=== PATIENT | male | born 1950 | race Caucasian/White ===

== ENCOUNTER 2021-06-02 21:48 | Emergency (ER) | payer MEDICARE ==
[~2021-06-02] VITALS: Ht 188 cm; Wt 96.8 kg
--- NOTE | 2021-06-02 22:03 | PHYS DOC ---
Past History Past Medical History: A-Fib, Arrhythmia, CAD, Hypertension Past Surgical History: Coronary Bypass Surgery Past Surgical History Ablation-A. fib pathway's General Adult EDM: Chief Complaint: CHEST PAIN HPI: HPI: ". I ve been having chest ...discomfort tay off and on the past week or so.. it just today it has been constant. .. tightness feeling.. here in center.. I have prior cardiac issues.. Stents 2006, By pass in 2012.. Patient is a 70 year old male who presents with above hx and complaints of off and on chest discomfort, tightness the past week. The last 24 it has been constant, rated at a discomfort level of 2,. Most severe level was 4. Pt. has been compliant with his meds. Normally follows at [facility] for care with Cardiology Dr. Pimentel and primary Dr. Soares. Patient did have cardiac bypass in 2012 and in 2006 had cardiac stents at [facility]. Patient also underwent ablation for control of his A. fib. No recent travel. 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 Patient has gotten Covid vaccine x3 with [employer] and flu vaccine this year. 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 He is accompanied by his . Patient does not smoke. Denies any history of diabetes. Does have a history of hypertension. Review of Systems: Review of Systems: Constitutional: Denies fever or chills Eyes: Denies change in visual acuity HENT: Denies nasal congestion or sore throat Respiratory: Denies cough or shortness of breath Cardiovascular: Complains of chest tightness GI: Denies abdominal pain, nausea, vomiting, bloody stools or diarrhea : Denies dysuria Musculoskeletal: Denies back pain or joint pain Integument: Denies rash Neurologic: Denies headache, focal weakness or sensory changes Endocrine: Denies polyuria or polydipsia Lymphatic: Denies swollen glands Psychiatric: Denies depression or anxiety Family History: Family History: Noncontributory to presentation Current Medications: Current Meds: See nursing for home meds Allergies: Allergies: Erythromycin Physical Exam: PE: Constitutional: no acute distress, non-toxic appearance. [] HENT: Normocephalic, atraumatic, bilateral external ears normal, oropharynx moist, no oral exudates, nose normal. [] Eyes: PERRLA, EOMI, conjunctiva normal, no discharge. [] Neck: Normal range of motion, no tenderness, supple, no stridor. [] Cardiovascular:Heart rate regular rhythm, no murmur [.] Lungs & Thorax: Bilateral breath sounds equal apex auscultation [. Has] midline CABG scar Abdomen: Bowel sounds normal, soft, no tenderness, no masses, no pulsatile masses. [] Skin: Warm, dry, no erythema, no rash. [] Back: No tenderness, no CVA tenderness. [] Extremities: No tenderness, no cyanosis, no clubbing, ROM intact, no edema. No appreciable cording in legs. Neurologic: Alert and oriented X 3, normal motor function, normal sensory function, no focal deficits noted. [] Psychologic: Affect anxious, judgement normal, mood normal. [] EKG: EKG: My interpretation EKG shows a sinus rhythm at 73 bpm. Some nonspecific T wave changes anterior leads. But no findings acute STEMI with contralateral changes. Time of EKG is 2156 hrs. Second EKG shows sinus rhythm at 66 bpm. No acute morphology or findings of acute STEMI. Does have slightly prolonged QT interval at 512 ms and a QT interval of 486 ms. Overall morphology is similar to prior EKG. Time of this EKG is 00:10 [] Radiology/Procedures: Radiology/Procedures: [][place] [id number] IMAGING REPORT Signed PATIENT: OWEN MARTINES ACCOUNT: [id number] : 1950 LOCATION: ER AGE: 70 SEX: M EXAM STATUS: REG ER ORD. PHYSICIAN: BRITANY YANEZ MD REASON: cp PROCEDURE: PORTABLE CHEST 1V Exam: Chest one view INDICATION: Chest pain TECHNIQUE: Frontal view which Comparisons: None FINDINGS: Sternotomy wires are noted. The cardiomediastinal silhouette and pulmonary vessels are within normal limits. The lung and pleural spaces are clear. IMPRESSION: No acute pulmonary process. Electronically signed by: Jojo Martin MD (06/02/2021 11:08 PM) [facility] DICTATED AND SIGNED BY: JOJO MARTIN MD DATE: 06/02/21 [id number] CC: BETTYE SOARES MD; BRITANY YANEZ MD ~MTH0 0 Heart Score: C/O Chest Pain: Yes HEART Score for Chest Pain: HEART Score for Chest Pain Response (Comments) Value History Slighlty/Non-Suspicious 0 ECG Nonspecific Repolarizatio 1 Age > 65 2 Risk Factors 1 or 2 Risk Factors 1 Troponin < Normal Limit 0 Total 4 Risk Factors: Risk Factors: DM, Current or recent (<one month) smoker, HTN, HLP, family history of CAD, obesity. Risk Scores: Score 0 - 3: 2.5% MACE over next 6 weeks - Discharge Home Score 4 - 6: 20.3% MACE over next 6 weeks - Admit for Clinical Observation Score 7 - 10: 72.7% MACE over next 6 weeks - Early Invasive Strategies Course & Med Decision Making: Course & Med Decision Making Pertinent Labs and Imaging studies reviewed. (See chart for details) Discussed with patient and his options of further investigation tonight. Patient elects to be discharged home. Exhibits UCAR capacity, Patient continue cardiac meds as previous directed. 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 Patient to return if any concerns. Patient follow-up pending Covid results. Pt. without symptoms at time of discharge. Impression: 1. Chest pain 2. History of coronary artery disease status post coronary bypass and stent placements 3. History of A. fib-status post ablation treatment 4.. History of hypertension 5. Mild elevation in LFTs AST 45, ALT of 65, alk phos 157 6. Elevation of glucose= 193 [] Dragon Disclaimer: Dragon Disclaimer: This electronic medical record was generated, in whole or in part, using a voice recognition dictation system. Departure Departure: Referrals: BETTYE SOARES MD (PCP) Anneliese Disclaimer This chart was dictated in whole or in part using Voice Recognition software in a busy, high-work load, and often noisy Emergency Department environment. It may contain unintended and wholly unrecognized errors or omissions. BRITANY YANEZ MD Jun 02, 2021 22:03
[2021-06-02 22:29] LABS: BASO # 0.1 x10^3/uL (0.0-0.2); BASO % 1 % (0-3); EOS # 0.3 x10^3/uL (0.0-0.7); EOS % 4 % (0-3); HEMATOCRIT 43.6 % (39.0-53.0); HEMOGLOBIN 14.9 g/dL (13.0-17.5); LYMPH % 33 % (24-48); MEAN CORPUSCULAR HEMOGLOBIN 31 pg (25-35); MEAN CORPUSCULAR HGB CONC 34 g/dL (31-37); MEAN CORPUSCULAR VOLUME 89 fL (79-100); MONO # 0.7 x10^3/uL (0.0-1.1); MONO % 8 % (0-9); NEUT % 55 % (31-73); PLATELET COUNT 204 x10^3/uL (140-400); RED BLOOD COUNT 4.88 x10^6/uL (4.30-5.70); RED CELL DISTRIBUTION WIDTH 13.7 % (11.5-14.5); WHITE BLOOD COUNT 9.2 x10^3/uL (4.0-11.0)
[2021-06-02 22:38] LABS: CREATININE 1.4 mg/dL (0.7-1.3); GFR 50.4; POTASSIUM 3.7 mmol/L (3.5-5.1)
[2021-06-02 22:51] LABS: DIRECT BILIRUBIN 0.1 mg/dL (0.0-0.2); MAGNESIUM 2.3 mg/dL (1.8-2.4); TOTAL BILIRUBIN 0.5 mg/dL (0.2-1.0); TOTAL PROTEIN 6.7 g/dL (6.4-8.2)
[2021-06-02] MEDS ORDERED: IV RINGERS SOLUTION,LACTATED 1,000 ML IV SCH (23:00)
[2021-06-02] MEDS ORDERED: NITROGLYCERIN OINT 1 GM PACKET. TP ONE (23:00)
[2021-06-02] MEDS ORDERED: ASPIRIN CHEWABLE 81 MG TABLET. PO ONE (23:00)
--- NOTE | 2021-06-02 23:11 | RAD ---
Exam: Chest one view INDICATION: Chest pain TECHNIQUE: Frontal view which Comparisons: None FINDINGS: Sternotomy wires are noted. The cardiomediastinal silhouette and pulmonary vessels are within normal limits. The lung and pleural spaces are clear. IMPRESSION: No acute pulmonary process. Electronically signed by: Jojo Medrano MD (06/02/2021 11:08 PM) [facility]
[2021-06-02 23:16] LABS: BARBITURATES NEG (NEG); BENZODIAZEPINES NEG (NEG); CANNABINOIDS NEG (NEG); COCAINE NEG (NEG); METHADONE NEG (NEG); OPIATES NEG (NEG); PHENCYCLIDINE NEG (NEG)
[2021-06-02 23:22] LABS: AMPHETAMINE/METHAMPHETAMINE NEG (NEG)
[2021-06-03 00:10] LABS: BACTERIA,URINE FEW /HPF (0-FEW); BILIRUBIN,URINE NEG (NEG); CLARITY,URINE CLEAR; COLOR,URINE YELLOW; GLUCOSE,URINE NEG (NEG); NITRITE,URINE NEG (NEG); UROBILINOGEN,URINE 0.2 mg/dL (0.2 mg/dL); WBC,URINE 0 /HPF (0-4)
[2021-06-03 02:04] VITALS: BP 129/76
--- NOTE | 2021-06-04 04:03 | EKG ---
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
--- NOTE | 2021-06-04 04:06 | EKG ---
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
--- NOTE | 2021-06-04 04:06 | EKG ---
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
== END 2021-06-03 02:10 | disposition home or self-care (01) ==
LOC: ER 21:48
DX: R07.89 Other chest pain (principal); R79.89 Other specified abnormal findings of blood chemistry; R73.02 Impaired glucose tolerance (oral); I25.810 Atherosclerosis of coronary artery bypass graft(s) without angina pectoris; I48.91 Unspecified atrial fibrillation; I10 Essential (primary) hypertension; Z20.822 Contact with and (suspected) exposure to COVID-19
CPT/HCPCS: 36415; 71045; 80048; 80076; 80307; 81001; 82550; 83690; 83735; 83880; 84443; 84484; 85025; 85379; 85610; 85730; 86705; 86709; 86803; 87340; 87426; 93005; 96360; 96361; 99285; C9803; J7120; U0003